=== PATIENT | male | born 1930 | race Caucasian/White ===

== ENCOUNTER 2018-02-28 10:05 | Inpatient (IN) | payer OTHER, MEDICARE ==
[~2018-02-28] VITALS: Ht 170.2 cm; Wt 66.1 kg
[2018-02-28] MEDS ORDERED: amiodarone 150mg/dext, iso-os 100 ML IV ONE ×2 (10:15→11:00)
[2018-02-28] MEDS ORDERED: metoprolol tartrate 1mg/ml inj IV ONE ×2 (10:15→13:10)
[2018-02-28] MEDS ORDERED: adenosine 3mg/ml 2ml vial IV ONE ×3 (10:19→10:30)
[2018-02-28 10:46] LABS: BASOPHILS # (AUTO) 0.1 X10'3 (0-0.2); BASOPHILS % (AUTO) 1.1 % (0-1); EOSINOPHILS # (AUTO) 0.2 X10'3 (0-0.9); EOSINOPHILS % (AUTO) 2.5 % (0-6); HEMATOCRIT 47.5 % (42.0-52.0); HEMOGLOBIN 16.1 g/dl (14.0-17.9); INR 1.1 INR; LYMPHOCYTES # (AUTO) 1.8 X10'3 (1.1-4.8); LYMPHOCYTES % (AUTO) 21.4 % (21-51); MEAN CORPUSCULAR HEMOGLOBIN 29.9 PG (27.0-31.0); MEAN CORPUSCULAR VOLUME 88.1 FL (78-98); MEAN PLATELET VOLUME 7.8 FL (7.4-10.4); MONOCYTES # (AUTO) 0.7 X10'3 (0-0.9); MONOCYTES % (AUTO) 7.7 % (2-12); NEUTROPHILS # (AUTO) 5.8 X10'3 (1.8-7.7); NEUTROPHILS % (AUTO) 67.3 % (42-75); PLATELET COUNT 333 X10'3 (140-440); PROTHROMBIN TIME 11.1 SECONDS (9.0-12.0); RED BLOOD COUNT 5.39 X10'6 (4.70-6.10); RED CELL DISTRIBUTION WIDTH 16.3 % (11.5-14.5); WHITE BLOOD COUNT 8.6 X10'3 (4.5-11.0)
[2018-02-28 10:59] LABS: ALANINE AMINOTRANSFERASE 22 U/L (12-78); ALBUMIN 3.2 G/DL (3.4-5.0); ALBUMIN/GLOBULIN RATIO 0.9 (1.1-1.5); ALKALINE PHOSPHATASE 78 IU/L (46-116); ANION GAP 7 (8-16); ASPARTATE AMINO TRANSFERASE 18 U/L (10-37); BILIRUBIN,TOTAL 0.3 MG/DL (0.1-1.0); BLOOD UREA NITROGEN 19 MG/DL (7-18); BUN/CREATININE RATIO 15.6 (5.4-32.0); CALCIUM 9.3 MG/DL (8.5-10.1); CHLORIDE 106 MMOL/L (99-107); CREATININE 1.22 MG/DL (0.60-1.10); GLUCOSE 107 MG/DL (70-104); POTASSIUM 4.3 MMOL/L (3.5-5.1); SODIUM 143 MMOL/L (135-145); TOTAL CARBON DIOXIDE 30.3 MMOL/L (24-32); TOTAL PROTEIN 6.7 G/DL (6.4-8.2); eGFR 56 ML/MIN
[2018-02-28] MEDS ORDERED: morphine 4 MG/ML inj SYRINge IV PRN ×2 (13:10)
[2018-02-28] MEDS ORDERED: potassium Cl 40MEQ/NS 500ml 500 ML IV PRN ×2 (13:10)
[2018-02-28] MEDS ORDERED: magnesium Cl slow-release 64mg tablet PO PRN (13:10)
[2018-02-28] MEDS ORDERED: mag hydrox/Alum hydrox/simeth 30ml oral suspension PO PRN (13:10)
[2018-02-28] MEDS ORDERED: ipratropium/albuterol 3ml nebule NEB PRN (13:10)
[2018-02-28] MEDS ORDERED: magnesium 4gm in 100ml NS 100 ML IV PRN (13:10)
[2018-02-28] MEDS ORDERED: methylPREDNISolone sod succ 125mg/2ml vial IV ONE (13:10)
[2018-02-28] MEDS ORDERED: ondansetron/PF 4mg/2ml inj IV PRN (13:10)
[2018-02-28] MEDS ORDERED: HYDROcodone/acetaminophen 10/325mg tab PO PRN (13:10)
[2018-02-28] MEDS ORDERED: acetaminophen 325mg tablet PO PRN ×2 (13:10)
[2018-02-28] MEDS: K and/or MAG REPLACEMENT MC SCH (13:10)
[2018-02-28] MEDS ORDERED: magnesium hydroxide 30ml (MOM) UD suspension PO PRN (13:10)
[2018-02-28] MEDS ORDERED: HYDROcodone/acetaminophen 5mg/325mg tablet PO PRN (13:10)
[2018-02-28] MEDS ORDERED: magnesium 2GM in 50ml NS 50 ML IV PRN (13:10)
[2018-02-28] MEDS ORDERED: potassium Cl 20 mEq SR tablet PO PRN ×2 (13:10)
[2018-02-28] MEDS ORDERED: diphenhydrAMINE 50 mg/ml inj IV PRN (13:10)
[2018-02-28] MEDS: amiodarone/D5 450MG/250ML BAG 250 ML IV SCH ×3 (13:17→21:31)
[2018-02-28 16:00] VITALS: BP_SYST 102; BP_SYST 139; BP_DIAS 111; BP_DIAS 75
[2018-02-28] MEDS: levoFLOXACIN-Levaquin 500mg/D5 100 ML IV SCH (16:01)
[2018-02-28] MEDS: methylPREDNISolone sod succ 125mg/2ml vial IV SCH (16:01)
[2018-02-28] MEDS: normal saline 1000ml 1,000 ML IV SCH (16:02)
[2018-02-28 18:00] VITALS: BP 133/113
[2018-02-28] MEDS ORDERED: LOSA1TAB41 PO (18:15)
[2018-02-28] MEDS ORDERED: FURO-150 PO (18:16)
[2018-02-28] MEDS ORDERED: PANT-47 PO (18:16)
[2018-02-28] MEDS ORDERED: CHLO4TAB (18:17)
[2018-02-28] MEDS ORDERED: CARSR60C PO (18:17)
[2018-02-28] MEDS ORDERED: METO-384 PO (18:18)
[2018-02-28] MEDS ORDERED: FLO0.4C PO (18:19)
[2018-02-28] MEDS ORDERED: RANI150C4 PO (18:19)
[2018-02-28] MEDS ORDERED: APIX5TAB3 PO (18:20)
[2018-02-28] MEDS ORDERED: ATRNS (18:21)
[2018-02-28 19:00] VITALS: BP 133/113
[2018-02-28] MEDS: furosemide 10 MG/1 ML 10ml inj IV SCH (19:37)
[2018-02-28] MEDS: apixaban 5mg tablet PO SCH (19:37)
[2018-02-28 21:00] VITALS: BP 101/83
[2018-02-28 22:00] VITALS: BP 90/58
[2018-02-28] MEDS: temazepam 15mg capsule PO PRN (22:01)
[2018-02-28 23:00] VITALS: BP_SYST 90; BP_SYST 91; BP_DIAS 58; BP_DIAS 73
[2018-03-01] VITALS (17 sets, daily range): BP systolic 100–139; BP diastolic 60–117
[2018-03-01] MEDS: methylPREDNISolone sod succ 125mg/2ml vial IV SCH ×2 (00:13→09:15)
[2018-03-01 05:06] LABS: BASOPHILS % (AUTO) 0.2 % (0-1); EOSINOPHILS % (AUTO) 0.2 % (0-6); HEMATOCRIT 49.1 % (42.0-52.0); HEMOGLOBIN 16.5 g/dl (14.0-17.9); LYMPHOCYTES # (AUTO) 1.4 X10'3 (1.1-4.8); LYMPHOCYTES % (AUTO) 12.2 % (21-51); MEAN CORPUSCULAR HEMOGLOBIN 29.4 PG (27.0-31.0); MEAN CORPUSCULAR HGB CONC 33.7 % (33.0-36.5); MEAN CORPUSCULAR VOLUME 87.2 FL (78-98); MEAN PLATELET VOLUME 7.9 FL (7.4-10.4); MONOCYTES # (AUTO) 0.1 X10'3 (0-0.9); MONOCYTES % (AUTO) 0.7 % (2-12); NEUTROPHILS # (AUTO) 9.7 X10'3 (1.8-7.7); NEUTROPHILS % (AUTO) 86.7 % (42-75); PLATELET COUNT 347 X10'3 (140-440); RED BLOOD COUNT 5.63 X10'6 (4.70-6.10); RED CELL DISTRIBUTION WIDTH 16.4 % (11.5-14.5); WHITE BLOOD COUNT 11.2 X10'3 (4.5-11.0)
[2018-03-01 05:33] LABS: ALANINE AMINOTRANSFERASE 20 U/L (12-78); ALBUMIN 3.4 G/DL (3.4-5.0); ALBUMIN/GLOBULIN RATIO 0.9 (1.1-1.5); ALKALINE PHOSPHATASE 77 IU/L (46-116); ANION GAP 12 (8-16); ASPARTATE AMINO TRANSFERASE 18 U/L (10-37); BILIRUBIN,TOTAL 0.4 MG/DL (0.1-1.0); BLOOD UREA NITROGEN 19 MG/DL (7-18); BUN/CREATININE RATIO 15.4 (5.4-32.0); CALCIUM 9.6 MG/DL (8.5-10.1); CHLORIDE 104 MMOL/L (99-107); CHOL/HDL RATIO 3.4 (0.00-4.99); CHOLESTEROL 198 MG/DL (0-200); CREATININE 1.23 MG/DL (0.60-1.10); GLUCOSE 137 MG/DL (70-104); HDL CHOLESTEROL 58 MG/DL (35-60); LDL CHOLESTEROL 113 MG/DL (50-100); PHOSPHORUS 2.2 MG/DL (2.3-4.5); POTASSIUM 4.1 MMOL/L (3.5-5.1); SODIUM 142 MMOL/L (135-145); TOTAL CARBON DIOXIDE 25.7 MMOL/L (24-32); TOTAL PROTEIN 7.2 G/DL (6.4-8.2); TRIGLYCERIDES 125 MG/DL (20-135); eGFR 56 ML/MIN
[2018-03-01] MEDS ORDERED: digoxin 250mcg/ml 2ml ampule IV ONE (05:40)
[2018-03-01] MEDS: K and/or MAG REPLACEMENT MC SCH (08:00)
[2018-03-01] MEDS: furosemide 10 MG/1 ML 10ml inj IV SCH ×2 (09:04→19:45)
[2018-03-01] MEDS: apixaban 5mg tablet PO SCH ×2 (09:09→19:46)
[2018-03-01] MEDS: levoFLOXACIN-Levaquin 500mg/D5 100 ML IV SCH (09:18)
[2018-03-01] MEDS ORDERED: ondansetron/PF 4mg/2ml inj IV ONE (12:35)
[2018-03-01] MEDS: amiodarone/D5 450MG/250ML BAG 250 ML IV SCH ×2 (13:16→19:46)
[2018-03-01] MEDS ORDERED: metoprolol succinate 25mg (24-HOUR) SR. Tablet PO ONE (14:10)
[2018-03-01] MEDS ORDERED: DIPH25CA6 PO (14:20)
[2018-03-01] MEDS ORDERED: DILT120C62 PO (14:20)
[2018-03-01] MEDS ORDERED: GUAI600T45 PO (14:20)
[2018-03-01] MEDS: pantoprazole 40 MG vial IV SCH (14:45)
[2018-03-01] MEDS ORDERED: furosemide 20 MG/2 ML vial IV ONE (18:00)
[2018-03-01] MEDS: lactobacillus rhamnosus 10,000 MMU CELLS/CAPSULE PO SCH (19:45)
[2018-03-01] MEDS: methylPREDNISolone sod succ/PF 40mg inj. IV SCH (19:45)
[2018-03-01] MEDS ORDERED: diltiazem SR 60mg capsule (twice daily) PO SCH (20:00)
[2018-03-01] MEDS ORDERED: apixaban 5mg tablet PO SCH (20:00)
[2018-03-01] MEDS: diltiazem SR 60mg capsule (twice daily) PO SCH (21:14)
[2018-03-01] MEDS: temazepam 15mg capsule PO PRN (21:14)
[2018-03-02] VITALS (14 sets, daily range): BP systolic 68–114; BP diastolic 40–79
[2018-03-02] MEDS: amiodarone/D5 450MG/250ML BAG 250 ML IV SCH ×3 (03:34→20:59)
[2018-03-02 05:26] LABS: BASOPHILS % (AUTO) 0.1 % (0-1); EOSINOPHILS # (AUTO) 0.2 X10'3 (0-0.9); EOSINOPHILS % (AUTO) 0.6 % (0-6); HEMOGLOBIN 16.1 g/dl (14.0-17.9); LYMPHOCYTES % (AUTO) 6.8 % (21-51); MEAN CORPUSCULAR HEMOGLOBIN 29.6 PG (27.0-31.0); MEAN CORPUSCULAR HGB CONC 33.5 % (33.0-36.5); MEAN CORPUSCULAR VOLUME 88.1 FL (78-98); MEAN PLATELET VOLUME 7.9 FL (7.4-10.4); MONOCYTES # (AUTO) 0.2 X10'3 (0-0.9); MONOCYTES % (AUTO) 0.7 % (2-12); NEUTROPHILS # (AUTO) 26.8 X10'3 (1.8-7.7); NEUTROPHILS % (AUTO) 91.8 % (42-75); PLATELET COUNT 378 X10'3 (140-440); RED BLOOD COUNT 5.45 X10'6 (4.70-6.10); RED CELL DISTRIBUTION WIDTH 16.3 % (11.5-14.5)
[2018-03-02 05:42] LABS: WHITE BLOOD COUNT 29.2 X10'3 (4.5-11.0)
[2018-03-02 05:55] LABS: ALANINE AMINOTRANSFERASE 24 U/L (12-78); ALBUMIN 3.3 G/DL (3.4-5.0); ALBUMIN/GLOBULIN RATIO 0.9 (1.1-1.5); ALKALINE PHOSPHATASE 78 IU/L (46-116); ANION GAP 10 (8-16); ASPARTATE AMINO TRANSFERASE 15 U/L (10-37); BILIRUBIN,TOTAL 0.3 MG/DL (0.1-1.0); BLOOD UREA NITROGEN 31 MG/DL (7-18); BUN/CREATININE RATIO 19.5 (5.4-32.0); CALCIUM 9.6 MG/DL (8.5-10.1); CHLORIDE 101 MMOL/L (99-107); CREATININE 1.59 MG/DL (0.60-1.10); GLUCOSE 133 MG/DL (70-104); MAGNESIUM 2.3 MG/DL (1.5-2.4); PHOSPHORUS 4.1 MG/DL (2.3-4.5); POTASSIUM 4.4 MMOL/L (3.5-5.1); SODIUM 140 MMOL/L (135-145); TOTAL PROTEIN 7.1 G/DL (6.4-8.2); eGFR 41 ML/MIN
[2018-03-02] MEDS ORDERED: non-formulary drug (Ranitidine HCl 1 CAP) PO SCH (08:00)
[2018-03-02] MEDS ORDERED: diltiazem CD 120mg capsule (once-daily) PO SCH (08:00)
[2018-03-02] MEDS ORDERED: losartan 50mg tablet PO SCH (08:00)
[2018-03-02] MEDS ORDERED: non-formulary drug (Metoprolol Succinate 1 TAB) PO SCH (08:00)
[2018-03-02] MEDS: K and/or MAG REPLACEMENT MC SCH (08:00)
[2018-03-02] MEDS ORDERED: HYDROchlorothiazide 12.5mg capsule PO SCH (08:00)
[2018-03-02] MEDS: diltiazem SR 60mg capsule (twice daily) PO SCH ×2 (08:59→20:00)
[2018-03-02] MEDS: apixaban 5mg tablet PO SCH ×2 (09:02→20:01)
[2018-03-02] MEDS: metoprolol succinate 25mg (24-HOUR) SR. Tablet PO SCH (09:02)
[2018-03-02] MEDS: tamsulosin 0.4mg capsule PO SCH (09:02)
[2018-03-02] MEDS: lactobacillus rhamnosus 10,000 MMU CELLS/CAPSULE PO SCH ×2 (09:03→20:01)
[2018-03-02] MEDS: pantoprazole 40 MG vial IV SCH (09:05)
[2018-03-02] MEDS: methylPREDNISolone sod succ/PF 40mg inj. IV SCH (09:08)
[2018-03-02 10:42] LABS: ANISOCYTOSIS 1+; LYMPHOCYTES % (MANUAL) 5 % (21-51); MONOCYTES % (MANUAL) 2 % (2-12); NEUTROPHILS % (MANUAL) 92 % (42-75); PLATELET ESTIMATE NORMAL; TOTAL CELLS COUNTED 100
[2018-03-02] MEDS: levoFLOXACIN 500mg tablet PO SCH (11:53)
[2018-03-02] MEDS: normal saline 1000ml 1,000 ML IV SCH (12:20)
[2018-03-02] MEDS: temazepam 15mg capsule PO PRN (21:03)
[2018-03-03] VITALS (12 sets, daily range): BP systolic 76–120; BP diastolic 46–88
[2018-03-03 05:29] LABS: BASOPHILS % (AUTO) 0 % (0-1); EOSINOPHILS # (AUTO) 0.2 X10'3 (0-0.9); EOSINOPHILS % (AUTO) 0.8 % (0-6); HEMATOCRIT 43.4 % (42.0-52.0); HEMOGLOBIN 14.8 g/dl (14.0-17.9); LYMPHOCYTES # (AUTO) 1.9 X10'3 (1.1-4.8); LYMPHOCYTES % (AUTO) 6.2 % (21-51); MEAN CORPUSCULAR HEMOGLOBIN 30.2 PG (27.0-31.0); MEAN CORPUSCULAR VOLUME 88.9 FL (78-98); MEAN PLATELET VOLUME 7.9 FL (7.4-10.4); MONOCYTES # (AUTO) 0.4 X10'3 (0-0.9); MONOCYTES % (AUTO) 1.4 % (2-12); NEUTROPHILS # (AUTO) 27.6 X10'3 (1.8-7.7); NEUTROPHILS % (AUTO) 91.6 % (42-75); PLATELET COUNT 318 X10'3 (140-440); RED BLOOD COUNT 4.88 X10'6 (4.70-6.10); RED CELL DISTRIBUTION WIDTH 16.6 % (11.5-14.5)
[2018-03-03 05:31] LABS: WHITE BLOOD COUNT 30.1 X10'3 (4.5-11.0)
[2018-03-03 06:08] LABS: ALANINE AMINOTRANSFERASE 21 U/L (12-78); ALBUMIN 2.9 G/DL (3.4-5.0); ALBUMIN/GLOBULIN RATIO 0.9 (1.1-1.5); ALKALINE PHOSPHATASE 65 IU/L (46-116); ANION GAP 8 (8-16); ASPARTATE AMINO TRANSFERASE 17 U/L (10-37); BILIRUBIN,TOTAL 0.3 MG/DL (0.1-1.0); BLOOD UREA NITROGEN 50 MG/DL (7-18); BUN/CREATININE RATIO 26.6 (5.4-32.0); CALCIUM 9.3 MG/DL (8.5-10.1); CHLORIDE 101 MMOL/L (99-107); CREATININE 1.88 MG/DL (0.60-1.10); GLUCOSE 126 MG/DL (70-104); MAGNESIUM 2.2 MG/DL (1.5-2.4); PHOSPHORUS 4.8 MG/DL (2.3-4.5); POTASSIUM 4.6 MMOL/L (3.5-5.1); SODIUM 139 MMOL/L (135-145); TOTAL CARBON DIOXIDE 30.3 MMOL/L (24-32); TOTAL PROTEIN 6.3 G/DL (6.4-8.2); eGFR 34 ML/MIN
[2018-03-03 07:28] LABS: ANISOCYTOSIS 1+; PLATELET ESTIMATE NORMAL; TOTAL CELLS COUNTED 100
[2018-03-03] MEDS: K and/or MAG REPLACEMENT MC SCH (08:00)
[2018-03-03] MEDS: tamsulosin 0.4mg capsule PO SCH (09:00)
[2018-03-03] MEDS: lactobacillus rhamnosus 10,000 MMU CELLS/CAPSULE PO SCH ×2 (09:00→20:12)
[2018-03-03] MEDS: apixaban 5mg tablet PO SCH ×2 (09:00→20:12)
[2018-03-03] MEDS: pantoprazole 40mg Tablet.DR PO SCH (09:00)
[2018-03-03] MEDS: metoprolol succinate 25mg (24-HOUR) SR. Tablet PO SCH (09:00)
[2018-03-03] MEDS: dextrose 5%-1/2 normal saline 1,000 ML IV SCH (12:41)
[2018-03-03] MEDS: levoFLOXACIN 500mg tablet PO SCH (12:50)
[2018-03-03] MEDS: diltiazem SR 60mg capsule (twice daily) PO SCH ×2 (12:51→20:22)
[2018-03-03] MEDS: amiodarone/D5 450MG/250ML BAG 250 ML IV SCH (14:52)
[2018-03-03] MEDS ORDERED: amiodarone/D5 360MG/200ML BAG 250 ML IV SCH (16:14)
[2018-03-03] MEDS: ciprofloxacin 250mg tablet PO SCH (20:13)
[2018-03-03 20:53] LABS: CLARITY,URINE Clear (Clear); COLOR,URINE Yellow (Yellow); GLUCOSE, URINE Negative (Neg); KETONES,URINE Negative (Neg); LEUKOCYTE ESTERASE ,URINE Negative (Neg); NITRITES, URINE Negative (Neg); OCCULT BLOOD,URINE Negative (Neg); PH,URINE 5.5 (4.8-8.0); PROTEIN,URINE Negative (Neg); UROBILINOGEN,URINE 0.2 E.U/dL (0.2-1.0)
[2018-03-03 20:57] LABS: UA COLLECTION TYPE NON-SPECIFIED
[2018-03-03] MEDS: temazepam 15mg capsule PO PRN (21:34)
[2018-03-03 21:49] LABS: UA EOSINOPHILS NO EOS /HPF
[2018-03-04] VITALS (7 sets, daily range): BP systolic 93–123; BP diastolic 58–72
[2018-03-04] MEDS: dextrose 5%-1/2 normal saline 1,000 ML IV SCH ×3 (00:37→17:20)
[2018-03-04] MEDS ORDERED: amiodarone/D5 360MG/200ML BAG 200 ML IV SCH (04:52)
[2018-03-04 06:55] LABS: BASOPHILS % (AUTO) 0.4 % (0-1); EOSINOPHILS % (AUTO) 0.1 % (0-6); HEMATOCRIT 31.8 % (42.0-52.0); LYMPHOCYTES % (AUTO) 8.1 % (21-51); MEAN CORPUSCULAR HEMOGLOBIN 30.1 PG (27.0-31.0); MEAN CORPUSCULAR HGB CONC 34.6 % (33.0-36.5); MEAN PLATELET VOLUME 7.9 FL (7.4-10.4); MONOCYTES # (AUTO) 0.5 X10'3 (0-0.9); MONOCYTES % (AUTO) 4.2 % (2-12); NEUTROPHILS # (AUTO) 10.4 X10'3 (1.8-7.7); NEUTROPHILS % (AUTO) 87.2 % (42-75); PLATELET COUNT 235 X10'3 (140-440); RED BLOOD COUNT 3.66 X10'6 (4.70-6.10); RED CELL DISTRIBUTION WIDTH 16.3 % (11.5-14.5)
[2018-03-04] MEDS: diltiazem SR 60mg capsule (twice daily) PO SCH ×2 (07:08→19:52)
[2018-03-04] MEDS: lactobacillus rhamnosus 10,000 MMU CELLS/CAPSULE PO SCH ×2 (07:08→19:51)
[2018-03-04] MEDS: ciprofloxacin 250mg tablet PO SCH (07:08)
[2018-03-04] MEDS: pantoprazole 40mg Tablet.DR PO SCH (07:08)
[2018-03-04] MEDS: apixaban 5mg tablet PO SCH ×2 (07:08→19:51)
[2018-03-04] MEDS: metoprolol succinate 25mg (24-HOUR) SR. Tablet PO SCH (07:08)
[2018-03-04] MEDS: tamsulosin 0.4mg capsule PO SCH (07:08)
[2018-03-04] MEDS: K and/or MAG REPLACEMENT MC SCH (08:00)
[2018-03-04] MEDS: amiodarone/D5 450MG/250ML BAG 250 ML IV SCH (09:09)
[2018-03-04] MEDS ORDERED: amiodarone 200mg tablet PO SCH (09:10)
[2018-03-04] MEDS: levoFLOXACIN 500mg tablet PO SCH (11:17)
[2018-03-04 11:36] LABS: ALANINE AMINOTRANSFERASE 25 U/L (12-78); ALBUMIN 3.1 G/DL (3.4-5.0); ALKALINE PHOSPHATASE 67 IU/L (46-116); ANION GAP 7 (8-16); ASPARTATE AMINO TRANSFERASE 20 U/L (10-37); BILIRUBIN,TOTAL 0.3 MG/DL (0.1-1.0); BLOOD UREA NITROGEN 30 MG/DL (7-18); BUN/CREATININE RATIO 22.4 (5.4-32.0); CALCIUM 8.6 MG/DL (8.5-10.1); CHLORIDE 104 MMOL/L (99-107); CREATININE 1.34 MG/DL (0.60-1.10); GLUCOSE 122 MG/DL (70-104); MAGNESIUM 2.1 MG/DL (1.5-2.4); PHOSPHORUS 3.2 MG/DL (2.3-4.5); POTASSIUM 4.2 MMOL/L (3.5-5.1); SODIUM 143 MMOL/L (135-145); TOTAL CARBON DIOXIDE 31.9 MMOL/L (24-32); TOTAL PROTEIN 6.3 G/DL (6.4-8.2); eGFR 51 ML/MIN
[2018-03-04] MEDS: temazepam 15mg capsule PO PRN (22:19)
[2018-03-05 03:00] VITALS: BP 98/69
[2018-03-05] MEDS: dextrose 5%-1/2 normal saline 1,000 ML IV SCH (04:28)
[2018-03-05 05:47] LABS: BASOPHILS # (AUTO) 0.1 X10'3 (0-0.2); BASOPHILS % (AUTO) 0.7 % (0-1); EOSINOPHILS # (AUTO) 0.1 X10'3 (0-0.9); EOSINOPHILS % (AUTO) 1.3 % (0-6); HEMATOCRIT 40.1 % (42.0-52.0); HEMOGLOBIN 13.8 g/dl (14.0-17.9); LYMPHOCYTES # (AUTO) 1.6 X10'3 (1.1-4.8); LYMPHOCYTES % (AUTO) 14.4 % (21-51); MEAN CORPUSCULAR HEMOGLOBIN 30.2 PG (27.0-31.0); MEAN CORPUSCULAR HGB CONC 34.5 % (33.0-36.5); MEAN CORPUSCULAR VOLUME 87.5 FL (78-98); MEAN PLATELET VOLUME 7.5 FL (7.4-10.4); MONOCYTES # (AUTO) 0.8 X10'3 (0-0.9); MONOCYTES % (AUTO) 6.9 % (2-12); NEUTROPHILS # (AUTO) 8.6 X10'3 (1.8-7.7); NEUTROPHILS % (AUTO) 76.7 % (42-75); PLATELET COUNT 260 X10'3 (140-440); RED BLOOD COUNT 4.58 X10'6 (4.70-6.10); RED CELL DISTRIBUTION WIDTH 16.2 % (11.5-14.5); WHITE BLOOD COUNT 11.2 X10'3 (4.5-11.0)
[2018-03-05 06:00] VITALS: BP 117/79
[2018-03-05 06:03] LABS: ALANINE AMINOTRANSFERASE 24 U/L (12-78); ALBUMIN 2.7 G/DL (3.4-5.0); ALBUMIN/GLOBULIN RATIO 0.9 (1.1-1.5); ALKALINE PHOSPHATASE 61 IU/L (46-116); ANION GAP 5 (8-16); ASPARTATE AMINO TRANSFERASE 20 U/L (10-37); BILIRUBIN,TOTAL 0.4 MG/DL (0.1-1.0); BLOOD UREA NITROGEN 18 MG/DL (7-18); BUN/CREATININE RATIO 16.2 (5.4-32.0); CALCIUM 8.5 MG/DL (8.5-10.1); CHLORIDE 108 MMOL/L (99-107); CREATININE 1.11 MG/DL (0.60-1.10); GLUCOSE 101 MG/DL (70-104); MAGNESIUM 2.2 MG/DL (1.5-2.4); PHOSPHORUS 2.3 MG/DL (2.3-4.5); SODIUM 144 MMOL/L (135-145); TOTAL CARBON DIOXIDE 31.4 MMOL/L (24-32); TOTAL PROTEIN 5.7 G/DL (6.4-8.2); eGFR 63 ML/MIN
[2018-03-05] MEDS: metoprolol succinate 25mg (24-HOUR) SR. Tablet PO SCH (08:00)
[2018-03-05] MEDS: K and/or MAG REPLACEMENT MC SCH (08:00)
[2018-03-05] MEDS: lactobacillus rhamnosus 10,000 MMU CELLS/CAPSULE PO SCH (08:24)
[2018-03-05] MEDS: pantoprazole 40mg Tablet.DR PO SCH (08:24)
[2018-03-05] MEDS: tamsulosin 0.4mg capsule PO SCH (08:24)
[2018-03-05] MEDS: apixaban 5mg tablet PO SCH (08:24)
[2018-03-05] MEDS: diltiazem SR 60mg capsule (twice daily) PO SCH (08:24)
[2018-03-05] MEDS ORDERED: LEVO500T89 PO (09:55)
[2018-03-05] MEDS ORDERED: LACT1CAP26 PO (09:55)
[2018-03-05] MEDS ORDERED: CARSR60C PO (09:55)
[2018-03-05 11:00] VITALS: BP 137/89
[2018-03-05] MEDS ORDERED: normal saline 500ml IV soln 1,000 ML IV ONE (11:10)
[2018-03-05] MEDS: levoFLOXACIN 500mg tablet PO SCH (11:19)
== END 2018-03-05 14:20 | disposition home health service (06) | DRG 682 ==
LOC: ER 10:07 → ED HOLD 13:08 → EDBEDREQ 15:12 → PCU 3S 16:00
PROVIDERS: ADMIT Family Medicine; ATTEND Internal Medicine
DX: N17.9 Acute kidney failure, unspecified (principal); J96.90 Respiratory failure, unspecified, unspecified whether with hypoxia or hypercapnia; I50.31 Acute diastolic (congestive) heart failure; J44.1 Chronic obstructive pulmonary disease with (acute) exacerbation; I48.92 Unspecified atrial flutter; I11.0 Hypertensive heart disease with heart failure; D72.829 Elevated white blood cell count, unspecified; I48.91 Unspecified atrial fibrillation; N40.0 Benign prostatic hyperplasia without lower urinary tract symptoms; K21.9 Gastro-esophageal reflux disease without esophagitis; T38.0X5A Adverse effect of glucocorticoids and synthetic analogues, initial encounter; Z66 Do not resuscitate; Z79.899 Other long term (current) drug therapy; Z88.0 Allergy status to penicillin; Z87.891 Personal history of nicotine dependence; Z80.9 Family history of malignant neoplasm, unspecified; Y92.89 Other specified places as the place of occurrence of the external cause
CPT/HCPCS: 36415; 71045; 80053; 80061; 81003; 82570; 83036; 83605; 83735; 83880; 84100; 84133; 84145; 84300; 84443; 84484; 85025; 85610; 87040; 87070; 87207; 93005; 93306; 94760; 96365; 96375; 99285; C9113; J0153; J0282; J1160; J1940; J1956; J2405; J2920; J2930; J3490; J7030